=== PATIENT | male | born 1955 | race Caucasian/White ===

== ENCOUNTER 2016-11-10 21:07 | Emergency (ER) | payer OTHER ==
[~2016-11-10 21:07] MED LIST: ACIPHEX20 MG PO; ASPIRIN81 MG PO; ATORVASTATIN CA40 MG PO; CELEBREX200 M1 PO; DEPAKOTE ER500 M1 PO; DEXILANT60 M1 PO; DILANTIN100 MG PO; DILANTIN30 MG PO; DILTIAZEM 24HR180 MG PO; DILTIAZEM PO; HYDROCODONE/APA1 CAP PO; KEPPRA500 M3; KEPPRA750 M2 PO; NEURONTIN100 M1 PO; NORCO 5/325 TAB1 TAB PO; PRAVACHOL40 MG PO; PRED FORTE1 ML OP; PRED FORTE5 ML OP; ULTRAM50 MG PO; VIMPAT200 M1 PO; VIT C PO; VITAMIN B121000 MCG PO; VITAMIN C1000 MG PO; VITAMIN D 22000 UNIT PO; VITAMIN D31000 UNI3 PO; VITAMIN D32000 UNIT PO; [UNRECOGNIZED DRUG - CODE] PO
[2016-11-10] MEDS ORDERED: DEPAKOTE ER500 M1 PO (22:00)
[2016-11-10] MEDS ORDERED: NITROSTAT0.4 M1 PO (22:01)
[2016-11-10] MEDS ORDERED: FUROSEMIDE20 M1 PO (22:03)
[2016-11-10] MEDS ORDERED: POTASSIUM CHLO10 ME1 PO (22:05)
[2016-11-10 22:24] LABS: BASO % 0.5 % (0-2); EOS % 5.6 % (0-7); EOSINOPHIL ABSOLUTE COUNT 0.2 tho/cmm (0.0-0.7); HCT-HEMATOCRIT 36.7 % (36.0-53.5); HGB-HEMOGLOBIN 12.1 gm/dl (13.5-17.0); IMMATURE GRANULOCYTES ABSOLUTE 0.01 tho/cmm (0-0.03); IMMATURE GRANULOCYTES PERCENT 0.3 % (0-0.3); LYMPH % 36.6 % (20-45); LYMPH ABSOLUTE COUNT 1.4 tho/cmm (0.8-4.5); MCH (MEAN CORPUSCULAR HGB) 30.8 pg (28.0-32.0); MCV (MEAN CELL VOLUME) 93.4 fl (82.0-96.0); MEAN PLATELET VOLUME 9.8 cmc (9.4-12.4); MONO % 13.8 % (0-12); MONOCYTE ABSOLUTE COUNT 0.5 tho/cmm (0.0-1.2); NEUTROPHIL ABSOLUTE COUNT 1.6 tho/cmm (1.6-8.0); NEUTROPHIL-AUTOMATED 1.6 tho/cmm (1.6-8.0); NEUTROPHILS % 43.2 % (40-80); PLATELET COUNT 147 tho/cmm (150-450); RED BLOOD COUNT 3.93 mil/cmm (4.40-5.70); RED CELL DISTRIBUTION WIDTH 14.8 % (12.4-16.4); WHITE BLOOD COUNT 3.8 tho/cmm (4.0-10.0)
[2016-11-10 22:31] LABS: ALB/GLOB RATIO 0.9 (0.8-2.0); ALKALINE PHOSPHATASE 79 U/L (33-138); ALT/SGPT 38 U/L (12-78); BILIRUBIN,TOTAL 0.2 mg/dl (0.0-1.5); BLOOD UREA NITROGEN 25 mg/dl (6-24); CALCIUM 8.2 mg/dl (8.5-10.5); CARBON DIOXIDE-VENOUS 26 mmol/L (22-32); CHLORIDE 110 mmol/l (96-110); CREATININE 0.96 mg/dl (0.60-1.30); GLUCOSE 105 mg/dL (70-110); SODIUM 145 mmol/L (135-145); VALPROIC ACID (DEPAKOTE) 103 ug/ml (50-100); eGFR VALUE FOR BLACK >90 mL/Min
[2016-11-10 22:38] LABS: ANION GAP 13 mmol/L (0-20); AST/SGOT 35 U/L (10-40); POTASSIUM 4.2 mmol/L (3.7-5.1)
[2016-11-10 22:56] LABS: URINE BILIRUBIN NEGATIVE (NEG); URINE BLOOD NEGATIVE (NEG); URINE GLUCOSE (UA) NEGATIVE (NEG); URINE KETONE MODERATE (NEG); URINE LEUKOCYTE ESTERASE NEGATIVE (NEG); URINE NITRITE NEGATIVE (NEG); URINE PROTEIN NEGATIVE (NEG)
[2016-11-10 22:57] LABS: URINE APPEARANCE CLEAR; URINE COLOR YELLOW
== END 2016-11-10 23:30 ==
LOC: EDMED 21:07
PROVIDERS: Emergency Medicine
DX: H91.93 Unspecified hearing loss, bilateral (principal); R26.9 Unspecified abnormalities of gait and mobility; R56.9 Unspecified convulsions; I10 Essential (primary) hypertension; E78.5 Hyperlipidemia, unspecified; K21.9 Gastro-esophageal reflux disease without esophagitis; Z79.899 Other long term (current) drug therapy